=== PATIENT | male | born 1975 | race African-American/Black ===

== ENCOUNTER 2021-06-14 11:49 | Inpatient (IN) | payer MEDICAID, OTHER ==
[~2021-06-14] VITALS: Ht 180.3 cm; Wt 76.4 kg
[2021-06-14] MEDS ORDERED: SODIUM CHLORIDE 0.9% 1,000 ML IV ONE (12:45)
[2021-06-14 12:58] LABS: BASOPHILS % (AUTO) 0.7 % (0.0-2.0); EOSINOPHILS % (AUTO) 1.7 % (1.0-6.0); HEMATOCRIT 37.9 % (41-53); HEMOGLOBIN 12.9 g/dL (13.5-17.5); LYMPHOCYTES # (AUTO) 0.9 K/uL (1.0-4.8); LYMPHOCYTES % (AUTO) 33.5 % (22.0-44.0); MEAN CORPUSCULAR HEMOGLOBIN 31.7 pg (26.0-34.0); MEAN CORPUSCULAR HGB CONC 34.1 G/dL (31.0-37.0); MEAN CORPUSCULAR VOLUME 93 fL (80-100); MONOCYTES # (AUTO) 0.3 K/uL (0.1-1.0); MONOCYTES % (AUTO) 9.9 % (2.0-9.0); NEUTROPHILS # (AUTO) 1.5 K/uL (1.8-7.7); NEUTROPHILS % (AUTO) 54.2 % (40.0-70.0); PLATELET COUNT (AUTO) 200 K/uL (150-450); RED BLOOD CELL COUNT(AUTO) 4.07 MIL/uL (4.50-5.90); RED CELL DISTRIBUTION WIDTH 14.1 % (11.5-14.5)
[2021-06-14 13:11] LABS: PROTHROMBIN TIME 10.8 SEC (9.4-11.6)
[2021-06-14 13:13] LABS: ANION GAP 5 mmol/L (8-16); CALCIUM, TOTAL 8.9 mg/dL (8.8-10.5); CARBON DIOXIDE 31 mmol/L (22-29); CHLORIDE 106 mmol/L (98-107); CREATININE 1.04 mg/dL (0.60-1.30); GLOMERULAR FILTR. RATE CALC > 60 mL/min (>60); GLUCOSE,RANDOM 115 mg/dL (70-110); POTASSIUM 3.7 mmol/L (3.5-5.1); SODIUM SERUM 142 mmol/L (136-145); UREA NITROGEN, BLOOD 22 mg/dL (7-18)
[2021-06-14 13:19] LABS: SALICYLATE 2.4 mg/dL (2.8-20.0)
[2021-06-14 13:20] LABS: AMMONIA 53 umol/L (11-32); B-TYPE NATRIURETIC PEPTIDE 58 pg/mL (0-100); LACTIC ACID 1.6 mmol/L (0.4-2.0)
[2021-06-14 13:42] LABS: ALANINE AMINOTRANSFERASE 26 U/L (12-78); ALBUMIN 3.4 g/dL (3.4-5.0); ALKALINE PHOSPHATASE 83 U/L (46-116); ASPARTATE AMINOTRANSFERASE 5 U/L (15-37); BILIRUBIN,TOTAL 0.2 mg/dL (0.1-1.0); CREATINE KINASE, TOTAL ONLY 235 U/L (39-308); PHOSPHORUS 3.2 mg/dL (2.5-4.9); TOTAL PROTEIN, SERUM 6.5 g/dL (6.4-8.2)
[2021-06-14 13:46] LABS: ACETAMINOPHEN < 2 mcg/mL (10-30)
[2021-06-14 19:25] LABS: APPEARANCE,URINE CLEAR (CLEAR); BILIRUBIN,URINE NEGATIVE (NEGATIVE); GLUCOSE, URINE (UA) NEGATIVE (NEGATIVE); KETONES,URINE NEGATIVE (NEGATIVE); LEUKOCYTE ESTERASE ,URINE NEGATIVE (NEGATIVE); NITRATE,URINE NEGATIVE (NEGATIVE); OCCULT BLOOD,URINE NEGATIVE (NEGATIVE); PROTEIN,URINE TRACE (NEGATIVE); UROBILINOGEN,URINE 0.2 mg/dL (<=1.0)
[2021-06-14 19:27] LABS: AMPHET/METH SCREEN,URINE NEGATIVE (NEGATIVE); BARBITURATE SCREEN, URINE NEGATIVE (NEGATIVE); BENZODIAZEPINES SCREEN,URINE POSITIVE (NEGATIVE); CANNABINOID SCREEN,URINE POSITIVE (NEGATIVE); COCAINE SCREEN,URINE NEGATIVE (NEGATIVE); METHADONE SCREEN, URINE NEGATIVE (NEGATIVE); OPIATE SCREEN,URINE NEGATIVE (NEGATIVE); PHENCYCLIDINE SCREEN,URINE NEGATIVE (NEGATIVE)
[2021-06-14] MEDS ORDERED: ZOLPIDEM TARTRATE 10 MG TABLET PO PRN (20:00)
[2021-06-14 23:46] LABS: COVID AG,FIA SOURCE NASOPHARYNGEAL
[2021-06-15 01:16] LABS: CHOLESTEROL 119 mg/dL (131-200); HDL CHOLESTEROL 59 mg/dL (40-60); LDL CHOL (CALC.) 54 mg/dL (0-130); TRIGLYCERIDES 29 mg/dL (15-150)
[2021-06-15] MEDS ORDERED: CloNIDine HCL 0.1 MG TABLET PO PRN (16:00)
[2021-06-15] MEDS ORDERED: ONDANSETRON HCL 4 MG TABLET PO PRN (16:00)
[2021-06-15] MEDS ORDERED: IBUPROFEN 400 MG TABLET PO PRN (16:00)
[2021-06-15] MEDS ORDERED: MAGNESIUM HYDROXIDE SUSPENSION 30 ML UDCUP PO PRN (16:00)
[2021-06-15] MEDS ORDERED: PETROLATUM,WHITE 28 GM JELLY TP PRN (16:00)
[2021-06-15] MEDS ORDERED: ALBUTEROL SULFATE HFA 90 MCG/PUFF 8 GM INHALER IH PRN (16:00)
[2021-06-15] MEDS ORDERED: MAG HYDROX/AL HYDROX/SIMETH ES 30 ML SUSPENSION UDCUP PO PRN (16:00)
[2021-06-15] MEDS ORDERED: LOPERAMIDE HCL 2 MG CAPSULE PO PRN (16:00)
[2021-06-15] MEDS ORDERED: DOCUSATE SODIUM 100 MG CAPSULE PO PRN (16:00)
[2021-06-15] MEDS ORDERED: GuaiFENesin/D-METHORPHAN [SUGAR-FREE] 200-20MG/10 ML SYRUP UDCUP PO PRN (16:00)
[2021-06-15] MEDS ORDERED: NICOTINE 14 MG/24 HOUR PATCH TD PRN (16:00)
[2021-06-15] MEDS ORDERED: ACETAMINOPHEN 325 MG TABLET PO PRN (16:00)
[2021-06-15 16:44] VITALS: BP 124/75
[2021-06-16 07:13] VITALS: BP 147/82
[2021-06-16 08:49] VITALS: BP 133/69
[2021-06-16] MEDS: LORazepam 2 MG TABLET PO PRN ×2 (13:17→18:14)
[2021-06-16] MEDS: HALOPERIDOL 5 MG TABLET PO PRN (13:17)
[2021-06-16 18:00] VITALS: BP 119/67
[2021-06-16] MEDS: RisperiDONE 1 MG TABLET PO SCH (21:28)
[2021-06-17 05:33] VITALS: BP 116/64
[2021-06-17] MEDS: RisperiDONE 1 MG TABLET PO SCH ×2 (08:46→20:38)
[2021-06-17] MEDS: LORazepam 2 MG TABLET PO PRN ×2 (08:46→16:14)
[2021-06-17] MEDS: HALOPERIDOL 5 MG TABLET PO PRN ×2 (08:46→16:14)
[2021-06-17 11:18] VITALS: BP 142/76
[2021-06-17 16:25] VITALS: BP 140/62
[2021-06-18 05:38] VITALS: BP 132/81
[2021-06-18 08:27] VITALS: BP 156/74
[2021-06-18] MEDS: RisperiDONE 1 MG TABLET PO SCH ×2 (08:27→21:37)
[2021-06-18] MEDS: LORazepam 2 MG TABLET PO PRN ×3 (08:28→17:19)
[2021-06-18] MEDS: HALOPERIDOL 5 MG TABLET PO PRN ×2 (13:13→17:19)
[2021-06-18 16:34] VITALS: BP 140/92
[2021-06-19 08:31] VITALS: BP 110/66
[2021-06-19] MEDS: HALOPERIDOL 5 MG TABLET PO PRN ×2 (08:48→13:36)
[2021-06-19] MEDS: LORazepam 2 MG TABLET PO PRN ×2 (08:48→13:36)
[2021-06-19] MEDS: RisperiDONE 1 MG TABLET PO SCH (08:48)
[2021-06-19 16:32] VITALS: BP 139/67
[2021-06-19] MEDS: RisperiDONE 2 MG TABLET PO SCH (21:11)
[2021-06-20 02:10] VITALS: BP 132/74
[2021-06-20 08:15] VITALS: BP 118/72
[2021-06-20] MEDS: RisperiDONE 2 MG TABLET PO SCH ×2 (08:55→21:10)
[2021-06-20] MEDS: LORazepam 2 MG TABLET PO PRN ×2 (08:55→15:59)
[2021-06-20] MEDS: HALOPERIDOL 5 MG TABLET PO PRN ×2 (08:55→15:59)
[2021-06-20 16:24] VITALS: BP 132/78
[2021-06-21 05:06] VITALS: BP 124/68
[2021-06-21 08:40] VITALS: BP 120/84
[2021-06-21] MEDS: LORazepam 2 MG TABLET PO PRN ×2 (09:06→21:21)
[2021-06-21] MEDS: HALOPERIDOL 5 MG TABLET PO PRN (09:06)
[2021-06-21] MEDS: RisperiDONE 2 MG TABLET PO SCH ×2 (09:06→21:21)
[2021-06-21 16:55] VITALS: BP 128/71
[2021-06-22 04:27] VITALS: BP 124/72
[2021-06-22 08:42] VITALS: BP 151/83
[2021-06-22] MEDS: MULTIVITAMINS, THERAPEUTIC TABLET PO SCH (08:55)
[2021-06-22] MEDS: LORazepam 2 MG TABLET PO PRN ×2 (08:55→20:53)
[2021-06-22] MEDS: HALOPERIDOL 5 MG TABLET PO PRN (08:55)
[2021-06-22] MEDS: RisperiDONE 2 MG TABLET PO SCH ×2 (08:55→20:53)
[2021-06-22 16:33] VITALS: BP 140/96
[2021-06-23 06:14] VITALS: BP 180/100
[2021-06-23 07:12] LABS: BASOPHILS % (AUTO) 0.8 % (0.0-2.0); EOSINOPHILS % (AUTO) 3.7 % (1.0-6.0); LYMPHOCYTES # (AUTO) 1.1 K/uL (1.0-4.8); LYMPHOCYTES % (AUTO) 33.1 % (22.0-44.0); MEAN CORPUSCULAR HEMOGLOBIN 31.3 pg (26.0-34.0); MEAN CORPUSCULAR HGB CONC 33.3 G/dL (31.0-37.0); MEAN CORPUSCULAR VOLUME 94 fL (80-100); MONOCYTES # (AUTO) 0.5 K/uL (0.1-1.0); MONOCYTES % (AUTO) 14.1 % (2.0-9.0); NEUTROPHILS # (AUTO) 1.6 K/uL (1.8-7.7); NEUTROPHILS % (AUTO) 48.3 % (40.0-70.0); PLATELET COUNT (AUTO) 183 K/uL (150-450); RED BLOOD CELL COUNT(AUTO) 4.14 MIL/uL (4.50-5.90)
[2021-06-23] MEDS: MULTIVITAMINS, THERAPEUTIC TABLET PO SCH (08:59)
[2021-06-23] MEDS: RisperiDONE 2 MG TABLET PO SCH (08:59)
[2021-06-23] MEDS: LORazepam 2 MG TABLET PO PRN (08:59)
[2021-06-23] MEDS: HALOPERIDOL 5 MG TABLET PO PRN (08:59)
[2021-06-23 09:13] VITALS: BP 111/64
[2021-06-23] MEDS ORDERED: RISP2TAB86 PO (12:18)
[2021-06-23 16:57] VITALS: BP 140/96
== END 2021-06-23 17:33 | disposition home or self-care (01) | DRG 750 ==
LOC: EMS 12:03 → EDBD 12:03 → B2S 06-15 13:15 → B3A 06-16 15:50
PROVIDERS: ADMIT Psychiatry & Neurology Psychiatry; ATTEND Psychiatry & Neurology Psychiatry
DX: F20.0 Paranoid schizophrenia (principal); Z59.00 Homelessness unspecified; D64.9 Anemia, unspecified; D72.819 Decreased white blood cell count, unspecified; F12.10 Cannabis abuse, uncomplicated; Z20.822 Contact with and (suspected) exposure to COVID-19; R79.89 Other specified abnormal findings of blood chemistry; Z78.1 Physical restraint status; Z79.899 Other long term (current) drug therapy; Z72.89 Other problems related to lifestyle
CPT/HCPCS: 70450; 71045; 80053; 80061; 81003; 82140; 82550; 83605; 83735; 83880; 84100; 84484; 85025; 85610; 85730; 93005; 99285; G0480; G0481; 36415-L1; 36415-TC